=== PATIENT | male | born 1990 | race African-American/Black ===

== ENCOUNTER 2016-10-09 20:14 | Emergency (ER) | payer SELFPAY ==
[~2016-10-09] VITALS: Ht 182.9 cm; Wt 68.0 kg
[~2016-10-09 20:14] MED LIST: MAGICPED SWISH-SWAL; MEDR4PAK PO
[2016-10-09 20:16] VITALS: BP 133/81; PULSE 82; RESP 20; TEMP 97.9; O2SAT 98
--- NOTE | 2016-10-09 22:02 | PD ---
HPI Chief Complaint: Complaint Time Seen by Provider: 21:43 Travel History International Travel<30 days: No Contact w/Intl Traveler<30days: No Traveled to known affect area: No History of Present Illness HPI 26-year-old male presents emergency department for evaluation of left testicle pain. Patient states she's been having this pain on and off for the past 4 days. Also endorses some burning urination. Denies any discharge. Patient denies any nausea or vomiting but states he does have some mild suprapubic abdominal pain. Does not have any other symptoms including diarrhea constipation. No similar symptoms in the past PFSH Social History Alcohol Use: Yes Tobacco Use: Yes (/2 PPD) Substance Use: Yes (marijuana) Allergies-Medications (Allergen,Severity, Reaction): Coded Allergies: No Known Allergies (Unverified , 10/09/16) Reported Meds & Prescriptions Reported Meds & Active Scripts Active Doxycycline Hyclate 100 Mg Cap 100 Mg PO BID 10 Days Review of Systems Except as stated in HPI: all other systems reviewed are Neg Physical Exam Narrative GENERAL: Well-developed well-nourished no apparent distress SKIN: Warm and dry. HEAD: Atraumatic. Normocephalic. EYES: Pupils equal and round. No scleral icterus. No injection or drainage. ENT: No nasal bleeding or discharge. Mucous membranes pink and moist. NECK: Trachea midline. No JVD. CARDIOVASCULAR: Regular rate and rhythm. No murmur appreciated. RESPIRATORY: No accessory muscle use. Clear to auscultation. Breath sounds equal bilaterally. GASTROINTESTINAL: Abdomen soft, non-tender, nondistended. Hepatic and splenic margins not palpable. Genitourinary: There is trivial amount of tenderness over the left epididymis, testes are normal bilaterally no masses no lumps bumps no cellulitis fell. Penis is uncircumcised. No hernia, no rectal scrotal pain. MUSCULOSKELETAL: No obvious deformities. No clubbing. No cyanosis. No edema. NEUROLOGICAL: Awake and alert. No obvious cranial nerve deficits. Motor grossly within normal limits. Normal speech. PSYCHIATRIC: Appropriate mood and affect; insight and judgment normal. Data Data Last Documented VS Vital Signs Date Time Temp Pulse Resp B/P Pulse Ox O2 Delivery O2 Flow Rate FiO2 10/09/16 20:16 97.9 82 20 133/81 98 Orders Complete Blood Count With Diff (10/09/16 20:47) Comprehensive Metabolic Panel (10/09/16 20:47) Urinalysis - C+S If Indicated (10/09/16 21:39) Us Testicles W Doppler (10/09/16 ) Gc And Chlamydia Pcr (10/10/16 00:37) Ceftriaxone Inj (Rocephin Inj) (10/10/16 00:45) Metronidazole (Flagyl) (10/10/16 00:45) Azithromycin (Zithromax) (10/10/16 00:45) ^ Lidocaine 1% (10/10/16 01:07) Lidocaine 1% Inj (50 Ml) (Xylocaine 1% I (10/10/16 01:15) Labs Laboratory Tests Test 10/09/16 10/09/16 21:50 22:00 Urine Color LIGHT-YELLOW Urine Turbidity CLEAR Urine pH 6.0 Urine Specific [place] 1.010 Urine Protein NEG mg/dL Urine Glucose (UA) NEG mg/dL Urine Ketones NEG mg/dL Urine Occult Blood NEG Urine Nitrite NEG Urine Bilirubin NEG Urine Urobilinogen LESS THAN 2.0 MG/DL Urine Leukocyte Esterase LARGE Urine WBC 0-2 /hpf Urine Squamous Epithelial 0-5 /hpf Cells Microscopic Urinalysis Comment CULT NOT INDICATED Chlamydia trachomatis DNA DETECTED (PCR) Neisseria gonorrhoeae DNA DETECTED (PCR) White Blood Count 12.4 TH/MM3 Red Blood Count 4.11 MIL/MM3 Hemoglobin 11.8 GM/DL Hematocrit 35.0 % Mean Corpuscular Volume 85.2 FL Mean Corpuscular Hemoglobin 28.7 PG Mean Corpuscular Hemoglobin 33.7 % Concent Red Cell Distribution Width 14.5 % Platelet Count 291 TH/MM3 Mean Platelet Volume 8.5 FL Neutrophils (%) (Auto) 68.5 % Lymphocytes (%) (Auto) 22.7 % Monocytes (%) (Auto) 6.7 % Eosinophils (%) (Auto) 1.7 % Basophils (%) (Auto) 0.4 % Neutrophils # (Auto) 8.5 TH/MM3 Lymphocytes # (Auto) 2.8 TH/MM3 Monocytes # (Auto) 0.8 TH/MM3 Eosinophils # (Auto) 0.2 TH/MM3 Basophils # (Auto) 0.1 TH/MM3 CBC Comment DIFF FINAL Differential Comment Sodium Level 144 MEQ/L Potassium Level 3.7 MEQ/L Chloride Level 106 MEQ/L Carbon Dioxide Level 28.8 MEQ/L Anion Gap 9 MEQ/L Blood Urea Nitrogen 14 MG/DL Creatinine 1.29 MG/DL Estimat Glomerular Filtration 82 ML/MIN Rate Random Glucose 77 MG/DL Calcium Level 8.6 MG/DL Total Bilirubin 0.3 MG/DL Aspartate Amino Transf 18 U/L (AST/SGOT) Alanine Aminotransferase 20 U/L (ALT/SGPT) Alkaline Phosphatase 71 U/L Total Protein 7.0 GM/DL Albumin 3.9 GM/DL [facility] Medical Decision Making Medical Screen Exam Complete: Yes Emergency Medical Condition: Yes Differential Diagnosis Epididymitis, epididymal orchitis, torsion possible, STD, UTI. Narrative Course Patient roomed in emergency department, he appears well in no apparent distress. Last 24 hours Impressions Scrotum Ultrasound 10/09/16 0000 Signed Impressions: Service Date/Time: Sunday, October 09, 2016 23:47 - CONCLUSION: Likely left sided epididymitis. No evidence of testicular torsion or mass Prasad Billy MD Discussed with the patient he has evidence of epididymitis, that he strongly considered for treatment for STDs and he states he does have a new partner. Will be given Rocephin and azithromycin and Flagyl. Doxycycline this discharge medicine. Discussed with him the need for testing and treatment of partners, barrier contraception and follow with the health department further testing for RPR HIV and hepatitis.. Discussed disulfiram reaction. Diagnosis Primary Impression: Epididymitis, left Med/Other Pt SpecificInfo: Prescription(s) given Scripts Doxycycline Hyclate 100 Mg Upt458 Mg PO BID 10 Days Ref 0 Prov:Catalino Lee MD 10/10/16 Disposition: 01 DISCHARGE HOME Condition: Stable Catalino Lee MD Oct 09, 2016 22:02
[2016-10-09 22:23] LABS: AUTOMATED NEUTROPHIL # 8.5 TH/MM3 (1.8-7.7); BASOPHIL # 0.1 TH/MM3 (0-0.2); BASOPHIL % 0.4 % (0.0-2.0); EOSINOPHIL # 0.2 TH/MM3 (0-0.4); EOSINOPHIL % 1.7 % (0.0-4.0); HEMO FLAGS DIFF FINAL; LYMPH % 22.7 % (9.0-44.0); LYMPHOCYTE # 2.8 TH/MM3 (1.0-4.8); MEAN CELL VOLUME 85.2 FL (80.0-100.0); MEAN CORPUSCULAR HEMOGLOBIN 28.7 PG (27.0-34.0); MEAN CORPUSCULAR HGB CONC 33.7 % (32.0-36.0); MONO % 6.7 % (0.0-8.0); NEUT % 68.5 % (16.0-70.0); PLATELET COUNT 291 TH/MM3 (150-450); RED BLOOD COUNT 4.11 MIL/MM3 (4.50-5.90); RED CELL DISTRIBUTION WIDTH 14.5 % (11.6-17.2); WHITE BLOOD COUNT 12.4 TH/MM3 (4.0-11.0)
[2016-10-09 22:34] LABS: BLOOD, URINE NEG (NEG); GLUCOSE,URINE NEG (NEG); KETONE, URINE NEG (NEG); NITRITE,URINE NEG (NEG); URINE COLOR LIGHT-YELLOW (YELLW/STRAW)
[2016-10-09 22:42] LABS: ANION GAP 9 MEQ/L (5-15); AST (GOT) 18 U/L (15-37); BICARBONATE 28.8 MEQ/L (21.0-32.0); BLOOD UREA NITROGEN 14 MG/DL (7-18); CHLORIDE 106 MEQ/L (98-107); GLOMERULAR FILTRATION RATE 82 ML/MIN (>89); POTASSIUM 3.7 MEQ/L (3.5-5.1); SODIUM (NA) 144 MEQ/L (136-145)
[2016-10-09 22:45] LABS: ALKALINE PHOSPHATASE 71 U/L (45-117); ALT (GPT) 20 U/L (12-78); TOTAL BILIRUBIN ADULT 0.3 MG/DL (0.2-1.0)
[2016-10-09 23:00] LABS: COMMENT (UR) CULT NOT INDICATED; CULTURE IF INDICATED CULT NOT INDICATED; SQUAMOUS EPITHELIAL CELL URINE 0-5 /hpf (0-5); WBC, URINE 0-2 /hpf (0-5)
[2016-10-10] MEDS ORDERED: DOXY100C PO (00:42)
[2016-10-10] MEDS ORDERED: cefTRIAXone 250 MG VIAL IM ONE (00:45)
[2016-10-10] MEDS ORDERED: AZITHROMYCIN 250 MG TAB PO ONE (00:45)
[2016-10-10] MEDS ORDERED: metroNIDAZOLE 500 MG TAB PO ONE (00:45)
--- NOTE | 2016-10-10 01:04 | RADRPT ---
EXAM DATE/TIME: 10/09/2016 23:47 [place] COMPARISON: No previous studies available for comparison. INDICATIONS : Left scrotal pain. MEDICAL HISTORY : Scrotal pain. Dysuria. SURGICAL HISTORY : None. ENCOUNTER: Initial ACUITY: 4 - 6 days PAIN SCORE: 6/10 LOCATION: Bilateral scrotum. MEASUREMENTS: RIGHT TESTICLE: 4.8 x 3.0 x 2.0cm LEFT TESTICLE: 4.2 x 2.9 x 2.4cm FINDINGS: RIGHT TESTICLE: Homogeneous echotexture without intra or extratesticular mass. Blood flow is symmetric and within no rmal limits. No hydrocele or varicocele. Epididymis is within normal limits. LEFT TESTICLE: Homogeneous echotexture without intra or extratesticular mass. Blood flow is symmetric and within no rmal limits. Small hydrocele. Epididymis is hypervascular and mildly swollen. SCROTUM: Within normal limits. CONCLUSION: Likely left sided epididymitis. No evidence of testicular torsion or mass Prasad Billy MD on October 10, 2016 at 1:01 Board Certified Radiologist. This report was verified electronically.
[2016-10-10] MEDS ORDERED: LIDOCAINE HCL 1% 50 ML VIAL INFIL ONE (01:15)
[2016-10-10 05:00] LABS: CHLAMYDIA PCR DETECTED (NOT DETECT); NEISSERIA PCR DETECTED (NOT DETECT)
== END 2016-10-10 04:24 | disposition home or self-care (01) ==
LOC: NEPC 20:14
DX: N45.1 Epididymitis (principal); R30.0 Dysuria; F17.210 Nicotine dependence, cigarettes, uncomplicated
CPT/HCPCS: 76870; 80053; 81001; 85025; 87491; 87591; 93975; 96372; 99284; J0696

== ENCOUNTER 2016-11-03 19:36 | Emergency (ER) | payer SELFPAY ==
[~2016-11-03 19:36] MED LIST changes: +DOXY100C PO; -MAGICPED SWISH-SWAL; -MEDR4PAK PO
[2016-11-03 19:37] VITALS: BP 143/88; PULSE 76; RESP 16; TEMP 98.4; O2SAT 100
[2016-11-03 19:49] VITALS: BP 137/86; PULSE 70; RESP 18; O2SAT 98
--- NOTE | 2016-11-10 11:19 | EKG ---
Date Performed: 11/03/2016 Time Performed: 19:59:23 PTAGE: 26 years EKG: Sinus rhythm WITH SINUS ARRHYTHMIA MINIMAL VOLTAGE CRITERIA FOR LVH, CONSIDER NORMAL VARIANT ST ELEVATION, PROBAB LY EARLY REPOLARIZATION BORDERLINE ECG NO PREVIOUS TRACING DOCTOR: Garry Torrez Interpretating Date/Time 11/10/2016 11:19:03
== END 2016-11-03 22:35 | disposition left against medical advice (07) ==
LOC: NED 22:30
DX: R00.2 Palpitations (principal); Z53.21 Procedure and treatment not carried out due to patient leaving prior to being seen by health care provider
CPT/HCPCS: 93005; 99281